=== PATIENT | female | born 1965 | race Hispanic/Latino ===

== ENCOUNTER 2021-04-25 03:20 | Emergency (ER) | payer OTHER ==
[~2021-04-25] VITALS: Ht 154.9 cm; Wt 72.6 kg
[~2021-04-25 03:20] MED LIST: GLUCOPHAGE500 MG PO; NAPROXEN500 MG PO
--- OUTSIDE RECORDS SUMMARY | 2021-04-25 03:22 | XMS ---
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 Joaquim has no Care Guidelines for this patient. Izabella VISIT COUNT (12 MO.) [address] Anthony Dilcia TOTAL 3 NOTE: Visits indicate total known visits. ED/UCC VISIT TRACKING (12 MO.) 04/25/2021 03:[facility] COMPLAINT: - VOMITING 04/15/2021 10:33 [facility] [place] TYPE: Emergency DIAGNOSES: - Contusion of right lower leg, initial encounter - POSS BLOOD CLOT L LEG 10/04/2020 15:51 [facility] [place] TYPE: Emergency DIAGNOSES: - possible stroke - Acute cystitis with hematuria INPATIENT VISIT TRACKING (12 MO.) No inpatient visits to display in this time frame [email or web address]
[2021-04-25] MEDS ORDERED: CLONIDINE HCL0.3 MG PO (03:45)
[2021-04-25] MEDS ORDERED: AMLODIPINE BESY10 MG PO (03:45)
[2021-04-25] MEDS ORDERED: RENAPLEX TABLE1 EACH PO (03:46)
[2021-04-25] MEDS ORDERED: CLONIDINE HCL0.1 MG PO (03:47)
[2021-04-25] MEDS ORDERED: FERRIC CITRATE210 MG PO (03:54)
[2021-04-25] MEDS ORDERED: INSULIN AS100 UNIT/1 SQ (04:21)
--- NOTE | 2021-04-26 07:08 | EKG ---
[facility] [address] [facility] [place] [address] Signed Normal sinus rhythm Possible Left atrial enlargement Nonspecific ST abnormality Prolonged QT Abnormal ECG No previous ECGs available Confirmed by GALI BURNETTE MD ([id number]) on 04/26/2021 7:08:24 AM Electronically Signed By: GALI BURNETTE MD 04/26/2108 PATIENT NAME: OLIVER MCFARLANE Electrocardiogram DATE OF : 69 PHYSICIAN: GALI BURNETTE MD REPORT #: [id number] REPORT IS CONFIDENTIAL AND NOT TO BE RELEASED WITHOUT AUTHORIZATION
== END 2021-04-25 15:59 | disposition short-term general hospital (02) ==
LOC: ED 03:20
DX: E11.65 Type 2 diabetes mellitus with hyperglycemia (principal); I10 Essential (primary) hypertension; N19 Unspecified kidney failure; I16.9 Hypertensive crisis, unspecified; E11.9 Type 2 diabetes mellitus without complications; Z85.3 Personal history of malignant neoplasm of breast; Z79.899 Other long term (current) drug therapy; Z79.4 Long term (current) use of insulin
CPT/HCPCS: 36415; 71045; 80048; 80053; 81001; 82803; 83735; 84484; 85025; 93005; 93010; 96374; 96375; 96376; 99285-25; J0360; J1815; J2765; J7030

== ENCOUNTER 2021-06-14 10:08 | Emergency (ER) | payer OTHER ==
[~2021-06-14] VITALS: Ht 154.9 cm; Wt 72.6 kg
[~2021-06-14 10:08] MED LIST changes: +AMLODIPINE BESY10 MG PO; +CLONIDINE HCL0.1 MG PO; +CLONIDINE HCL0.3 MG PO; +FERRIC CITRATE210 MG PO; +INSULIN AS100 UNIT/1 SQ; +RENAPLEX TABLE1 EACH PO
--- OUTSIDE RECORDS SUMMARY | 2021-06-14 10:16 | XMS ---
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 - Visits in 30 Days CARE PROVIDERS PRATEEK ESCOBEDO [facility] Current PHONE: [phone] BELÉN POSADA Physician Current PHONE: [phone] Joaquim has no Care Guidelines for this patient. Izabella VISIT COUNT (12 MO.) [address] TOTAL 5 NOTE: Visits indicate total known visits. 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 Nausea with vomiting, unspecified 1. Type 2 diabetes mellitus with ketoacidosis without coma 2. Myocardial infarction type 2 3. End stage renal disease 4. Hypertensive chronic kidney disease with stage 5 chronic kidney disease or end stage renal disease 5. Hypertensive urgency 6. Anemia in chronic kidney disease 7. Renal osteodystrophy 8. Dependence on renal dialysis 9. 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 Other group home (current) drug therapy 11. Personal history of malignant neoplasm of breast [id number]
[2021-06-14] MEDS ORDERED: LISINOPRIL10 MG PO (11:48)
[2021-06-14] MEDS ORDERED: LO-DOSE ASPIRIN81 M1 PO (11:48)
[2021-06-14] MEDS ORDERED: COREG25 MG PO (11:49)
[2021-06-14] MEDS ORDERED: RENAPLEX TABLE1 EACH PO (11:49)
[2021-06-14] MEDS ORDERED: LIPITOR40 MG PO (11:49)
[2021-06-14] MEDS ORDERED: OMEPRAZOLE20 MG PO (11:49)
[2021-06-14] MEDS ORDERED: REGLAN10 MG PO (11:50)
[2021-06-14] MEDS ORDERED: CATAPRES-TTS 31 EACH TD (11:50)
== END 2021-06-14 16:24 | disposition home or self-care (01) ==
LOC: ED 10:08
DX: R03.0 Elevated blood-pressure reading, without diagnosis of hypertension (principal); E11.22 Type 2 diabetes mellitus with diabetic chronic kidney disease; N18.9 Chronic kidney disease, unspecified; Z85.3 Personal history of malignant neoplasm of breast; Z79.899 Other long term (current) drug therapy; Z79.4 Long term (current) use of insulin; Z79.82 Long term (current) use of aspirin
CPT/HCPCS: 80053; 85025; 99284

== ENCOUNTER 2021-08-09 14:55 | Emergency (ER) | payer OTHER ==
[~2021-08-09] VITALS: Ht 154.9 cm; Wt 86.3 kg
[~2021-08-09 14:55] MED LIST changes: +CATAPRES-TTS 31 EACH TD; +COREG25 MG PO; +LIPITOR40 MG PO; +LISINOPRIL10 MG PO; +LO-DOSE ASPIRIN81 M1 PO; +OMEPRAZOLE20 MG PO; +REGLAN10 MG PO
--- OUTSIDE RECORDS SUMMARY | 2021-08-09 15:02 | XMS ---
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 Izabella VISIT COUNT (12 MO.) [address] [facility] TOTAL 6 NOTE: Visits indicate total known visits. ED/UCC VISIT TRACKING (12 MO.) 08/09/2021 14:56 [facility] [place] TYPE: Emergency COMPLAINT: - VOMITING 06/14/2021 10:09 [facility] [place] TYPE: Emergency COMPLAINT: - NAUSEA, HIGH B/P, ABD PAIN DIAGNOSES: - [facility] (current) use of insulin - 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 care (current) use of aspirin - Other [facility] (current) drug therapy - Type 2 diabetes mellitus with diabetic chronic kidney disease - Elevated blood-pressure reading, without diagnosis of hypertension - Personal history of malignant neoplasm of breast - Chronic kidney disease, unspecified 06/01/2021 14:59 [facility] [place] TYPE: Emergency DIAGNOSES: - VOMITING ABD PAIN - Nausea with vomiting, unspecified - Dependence on renal dialysis - Constipation, unspecified - End stage renal disease 04/25/2021 03:21 [facility] [place] TYPE: Emergency COMPLAINT: - VOMITING DIAGNOSES: - Personal history of malignant neoplasm of breast - Hypertensive crisis, unspecified - 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 - 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 care (current) use of insulin - Essential (primary) hypertension - Unspecified kidney failure - Type 2 diabetes mellitus with hyperglycemia - Type 2 diabetes mellitus without complications - Nausea with vomiting, unspecified 04/15/2021 10:33 [facility] [place] TYPE: Emergency DIAGNOSES: - Contusion of right lower leg, initial encounter - POSS BLOOD CLOT L LEG 10/04/2020 15:51 [facility] [place] TYPE: Emergency DIAGNOSES: - possible stroke - Acute cystitis with hematuria INPATIENT VISIT TRACKING (12 MO.) 04/25/2021 16:19 [facility] TYPE: Medical Surgical COMPLAINT: - NSTEMI DIAGNOSES: [...] osteodystrophy 8. Dependence on renal dialysis 9. [facility] (current) use of insulin 10. Other [facility] (current) drug therapy 11. Personal history of malignant neoplasm of breast [email or web address]
[2021-08-09] MEDS ORDERED: CARVEDILOL25 MG (19:04)
[2021-08-09] MEDS ORDERED: ONDANSETRON ODT8 MG PO (21:25)
[2021-08-12] MEDS ORDERED: FERRIC CITRATE210 MG PO (11:21)
[2021-08-12] MEDS ORDERED: RENA-VITE TABL0.8 MG PO (11:22)
[2021-08-12] MEDS ORDERED: PROMETHAZINE HC25 M1 PO (11:23)
[2021-08-12] MEDS ORDERED: MINOXIDIL2.5 MG PO (11:24)
== END 2021-08-09 21:55 | disposition home or self-care (01) ==
LOC: ED 14:55
DX: I12.9 Hypertensive chronic kidney disease with stage 1 through stage 4 chronic kidney disease, or unspecified chronic kidney disease (principal); E11.22 Type 2 diabetes mellitus with diabetic chronic kidney disease; N18.9 Chronic kidney disease, unspecified; Z99.2 Dependence on renal dialysis; Z85.3 Personal history of malignant neoplasm of breast; Z90.710 Acquired absence of both cervix and uterus; Z79.4 Long term (current) use of insulin; Z79.899 Other long term (current) drug therapy
CPT/HCPCS: 80053; 81001; 83735; 85025; 96374; 96375; 96376; 99284-25; J1815; J2405; J2550